=== PATIENT | female | born 1935 | race Hispanic/Latino ===

== ENCOUNTER 2024-04-11 18:34 | Emergency (ER) | payer OTHER ==
[~2024-04-11] VITALS: Ht 147.3 cm; Wt 72.6 kg
[2024-04-11 18:40] VITALS: TEMP 98.9
[2024-04-11 18:57] LABS: BASOPHILS # (AUTO) 0.1 (0.0-0.1); BASOPHILS % 0.4 % (0.0-1.0); EOSINOPHILS # (AUTO) 0.1 (0.0-0.4); EOSINOPHILS % 0.4 % (0.0-6.0); HEMATOCRIT 39.8 % (34.2-44.1); HEMOGLOBIN 12.2 g/dL (12.0-16.0); LYMPHOCYTES # (AUTO) 2.4 (1.0-3.2); LYMPHOCYTES % 13.8 % (18.0-39.1); MEAN CORPUSCULAR HEMOGLOBIN 29.3 pg (28-32); MEAN CORPUSCULAR HGB CONC 30.7 g/dL (31-35); MEAN CORPUSCULAR VOLUME 95.7 fL (81-99); MONOCYTES # (AUTO) 1.2 (0.2-0.8); MONOCYTES % 7.2 % (4.4-11.3); NEUTROPHILS % 76.4 % (38.7-80.0); PLATELET COUNT 344 x10e3/uL (140-360); RED BLOOD COUNT 4.16 x10e6/uL (3.6-5.1); RED CELL DISTRIBUTION WIDTH 14.7 % (11.7-14.4)
[2024-04-11 19:17] LABS: ALBUMIN/GLOBULIN RATIO 0.6 (0.8-2.0); ANION GAP 15.8 mmol/L (8-16); BILIRUBIN,TOTAL 1.1 mg/dL (0.2-1.2); CALCIUM 9.6 mg/dL (8.4-10.2); CREATININE, SERUM 1.1 mg/dL (0.57-1.11); POTASSIUM 3.8 mmol/L (3.5-5.1)
[2024-04-11] MEDS: KETOROLAC TROMETHAMINE 30 MG/ML VIAL IV STA (19:28)
[2024-04-11] MEDS ORDERED: IOPAMIDOL 370 MG/ML 100 ML INFUS..BTL INJ ONE (20:44)
[2024-04-11 21:00] VITALS: PULSE 86; RESP 16
[2024-04-11] MEDS: SODIUM CHLORIDE 0.9% 1000ML 1,000 ML IV ONE (22:55)
[2024-04-11] MEDS ORDERED: CLINDAMYCIN HC150 MG PO (23:02)
[2024-04-11 23:44] VITALS: BP 152/80; PULSE 76; RESP 18; TEMP 98.7; O2SAT 98
== END 2024-04-11 23:46 | disposition home or self-care (01) ==
LOC: ER 18:40
DX: M25.571 Pain in right ankle and joints of right foot (principal); L03.115 Cellulitis of right lower limb; M25.471 Effusion, right ankle; I10 Essential (primary) hypertension; M81.0 Age-related osteoporosis without current pathological fracture
CPT/HCPCS: 36415; 80053; 84550; 85025; 99284; J1885; J7030; Q9967